=== PATIENT | female | born 1955 | race Caucasian/White ===

== ENCOUNTER 2021-06-23 05:24 | Day surgery (SDC) | payer OTHER ==
[~2021-06-23] VITALS: Ht 158 cm; Wt 62.1 kg
[~2021-06-23 05:24] MED LIST: BUPROPION HCL150 M1 PO; BYSTOLIC10 MG PO; PROGESTERO50 MG/1 M1 PO; TRAMADOL HCL50 MG PO; WELLBUTRIN SR200 MG PO
--- NOTE | 2021-06-23 15:43 | NUR ---
PT REQUESTED [facility] [place]. FIRST APPT IS 06/25/2021 AT 9:00 A.M. CENTRAL TIME. [facility] TO DELIVER A ROLLING WALKER UPON DISCHARGE.
[2021-06-24 06:32] LABS: BASOPHIL 0.1 % (0-2); EOSINOPHIL 0.1 % (0-7); HCT 31.4 % (37.0-47.0); LYMPHOCYTE 8.2 % (15-48); MCHC 31.8 g/dL (32.0-36.0); MCV 97.2 fL (78.0-100.0); MONOCYTE 7.2 % (0-12); MPV 10.3 fL (6.0-9.5); NEUTROPHIL 83.8 % (41-80); NRBC 0; PLT 227 K/uL (150-400); RBC 3.23 M/uL (4.20-5.40); RDW 13.5 % (11.5-14.0); WBC 16.8 K/uL (4.0-10.5)
[2021-06-24 06:57] LABS: BUN/CREAT RATIO (CALC) 12.9 RATIO; CREATININE 0.93 mg/dL (0.51-0.95); POTASSIUM 4.2 mmol/L (3.5-5.1)
[2021-06-24] MEDS ORDERED: XARELTO10 MG PO (10:01)
[2021-06-24] MEDS ORDERED: FEOSOL325 MG PO (10:01)
[2021-06-24] MEDS ORDERED: PANTOPRAZOLE SO40 MG PO (10:05)
--- NOTE | 2021-06-24 12:06 | NUR ---
PT TO [facility] THIS DATE WITH SPOUSE. PT RECEIVED A ROLLING WALKER FROM [facility] AND WILL GO TO [facility] IN [place]. INFORMATION HAS BEEN FAXED TO [facility] AT [phone]. PHONE NUMBER FOR [facility] IS [phone].
--- NOTE | 2021-06-24 12:06 | NUR ---
PT. [facility] PAY IS $11.00 PER [facility] IN [place].
== END 2021-06-24 14:25 | disposition home or self-care (01) ==
LOC: FAS 05:24 → FOFB 05:24 → FAS 07:00 → EDBD 07:00 → FAS 07:30 → FOFB 10:10 → FAS 06-24 14:25
PROVIDERS: Internal Medicine
DX: M17.12 Unilateral primary osteoarthritis, left knee (principal); M21.162 Varus deformity, not elsewhere classified, left knee; G89.18 Other acute postprocedural pain; Z98.51 Tubal ligation status; I10 Essential (primary) hypertension; G47.30 Sleep apnea, unspecified; R94.31 Abnormal electrocardiogram [ECG] [EKG]
CPT/HCPCS: 36415; 73560; 80048; 85025; 86850; 86900; 86901; 94010; 97162; 97166; 97530-GP; 97535; C1713; C1766; C1776; J0171; J0690; J0697; J1100; J1885; J2250; J2270; J2370; J2405; J2704; J2795; J3010; J7120